=== PATIENT | male | born 1960 | race Caucasian/White ===

== ENCOUNTER 2021-12-31 10:56 | Day surgery (SDC) | payer OTHER ==
[~2021-12-31] VITALS: Ht 188 cm; Wt 87.0 kg
[2021-12-31] MEDS ORDERED: COMBIRESP IH (14:03)
[2021-12-31] MEDS ORDERED: VITAMIN D31000 IU PO (14:04)
[2021-12-31] MEDS ORDERED: MOBIC15 MG PO (14:05)
[2021-12-31] MEDS ORDERED: DITROPAN 5MG TAB5 MG PO (14:06)
[2021-12-31] MEDS ORDERED: VIAGRA100 M1 (14:07)
[2021-12-31] MEDS ORDERED: AMBIEN 10MG10 MG PO (14:08)
[2021-12-31] MEDS ORDERED: ZOCOR 40MG40 MG PO (14:08)
[2021-12-31] MEDS ORDERED: ZYLOPRIM 300MG300 MG PO (14:09)
[2021-12-31] MEDS ORDERED: NICODERM C21 MG/PATC TD (14:12)
[2021-12-31] MEDS ORDERED: PREDNISONE20 MG PO (14:12)
[2021-12-31 14:15] VITALS: BP 152/78; PULSE 77; TEMP 97.4
[2021-12-31] MEDS ORDERED: NORCO 325 MG-51 TAB PO (14:53)
[2021-12-31 14:55] VITALS: BP 118/72; PULSE 79; TEMP 98.3
[2021-12-31 15:10] VITALS: BP 117/73; PULSE 73
[2021-12-31 15:25] VITALS: BP 128/81; PULSE 82
[2021-12-31 15:40] VITALS: BP 132/79; PULSE 73
--- NOTE | 2021-12-31 15:55 | NUR ---
1455-PT TO BAY 8 PER CART FROM OR. RECEIVED REPORT FROM CHILD WELFARE ASSISTANT AND METEOROLOGIST LIAISON. VS OBTAINED. CALL LIGHT WITHIN REACH. PT DENIES ANY NEEDS AT THIS TIME. 1525-PT TOLERATING PEPSI AND DENIES WANTING ANYTHING TO EAT. DENIES ANY PAIN AT THIS TIME. 1545-IV DC'D AT THIS TIME. DISCHARGE EDUCATION COMPLETED WITH PT AND HIS COUSIN. VERBALIZED UNDERSTANDING OF HOME AND FOLLOW UP CARE. ALL QUESTIONS ANSWERED. DISCHARGE PAPERWORK GIVEN TO PT. 1555-PT OFF UNIT PER WHEELCHAIR. PT DISCHARGED TO HOME WITH COUSIN PER PERSONAL VEHICLE.
== END 2021-12-31 15:55 | disposition home or self-care (01) ==
LOC: SDCO 10:56
DX: C83.18 Mantle cell lymphoma, lymph nodes of multiple sites (principal); F17.210 Nicotine dependence, cigarettes, uncomplicated
CPT/HCPCS: C1788; J0690; J2704; J7120